=== PATIENT | female | born 1950 | race Caucasian/White ===

== ENCOUNTER 2023-03-14 14:56 | Outpatient (CLI) | payer MEDICARE, OTHER | END 2023-03-14 14:57 | disposition home or self-care (01) | LOC: CSHULT 14:56 | PROVIDERS: ATTEND Internal Medicine Cardiovascular Disease | DX: I44.2 Atrioventricular block, complete (principal); I08.3 Combined rheumatic disorders of mitral, aortic and tricuspid valves | CPT/HCPCS: 93306 ==